=== PATIENT | male | born 1980 | race African-American/Black ===

== ENCOUNTER 2021-07-30 06:29 | Emergency (ER) | payer BC, SELFPAY ==
[2021-07-30] MEDS ORDERED: Ondansetron PF 4 MG/2 ML Vial ONE (07:51)
[2021-07-30] MEDS ORDERED: Morphine 4 MG/ML VIAL ONE (07:51)
[2021-07-30 07:56] LABS: #Eosinphils 0.1 thou/uL (0.0-0.7); #Lymphocytes 1.2 thou/uL (1.20-3.40); #Monocytes 0.9 thou/uL (0.11-0.59); #Neutrophils 4.2 thou/uL (1.40-6.50); %Basophils 0.5 % (0.0-1.0); %Eosinophils 1.6 % (0.0-10.0); %Lymphocytes 18.5 % (21.0-51.0); %Monocytes 14.2 % (0.0-10.0); %Neutrophils 65.3 % (42.0-75.0); Hemoglobin 13.1 g/dL (14.0-18.0); Mean Corpuscular HGB CONC 33.7 g/dL (32.0-36.0); Mean Corpuscular Hemoglobin 28.5 pg (27.0-31.0); Mean Corpuscular Volume 84.6 fL (78.0-98.0); Mean Platelet Volume 7.8 fL (7.4-10.4); Platelet Count 315 thou/uL (130-400); Red Blood Cell (RBC) Count 4.58 mill/uL (4.70-6.10); White Blood Cell (WBC) Count 6.5 thou/uL (4.8-10.8)
[2021-07-30 08:10] LABS: ALT (SGPT) 8 U/L (8-55); AST (SGOT) 16 U/L (5-34); Alkaline Phosphatase 73 U/L (40-110); Anion Gap 11 mmol/L (10-20); BUN (Urea Nitrogen) 8 mg/dL (8.9-20.6); Bilirubin, Total 0.5 mg/dL (0.2-1.2); Calc. Creatinine Clearance 0 mL/min (70-130); Calcium 9.3 mg/dL (7.8-10.44); Carbon Dioxide 27 mmol/L (22-29); Chloride 103 mmol/L (98-107); Globulin 3.3 g/dL (2.4-3.5); Glucose 88 mg/dL (70-105); Potassium 4.3 mmol/L (3.5-5.1); Protein, Total 7.3 g/dL (6.0-8.3); Sodium 137 mmol/L (136-145)
== END 2021-07-30 09:17 | disposition home or self-care (01) ==
LOC: ERS 06:29
DX: R56.9 Unspecified convulsions (principal); R11.2 Nausea with vomiting, unspecified; I48.91 Unspecified atrial fibrillation; Z79.82 Long term (current) use of aspirin; Z79.899 Other long term (current) drug therapy
CPT/HCPCS: 70450; 71045; 80053; 80177; 84484; 85025; 93005; 96374; 96375; J2270; J2405

== ENCOUNTER 2021-09-09 01:37 | Observation (INO) | payer BC ==
[2021-09-09] MEDS ORDERED: Lorazepam 2 MG/ML VIAL SLOW IVP PRN ×2 (01:43→02:48)
[2021-09-09] MEDS ORDERED: Ondansetron PF 4 MG/2 ML Vial IVP PRN ×2 (01:45→02:47)
[2021-09-09] MEDS ORDERED: Acetaminophen 325 MG TAB PO PRN (01:45)
[2021-09-09] MEDS ORDERED: Ondansetron ODT 4 MG TAB SL PRN (01:45)
[2021-09-09 04:27] VITALS: BMI 38.7
[2021-09-09 05:54] LABS: #Eosinphils 0.2 thou/uL (0.0-0.7); #Lymphocytes 2.6 thou/uL (1.20-3.40); #Monocytes 0.5 thou/uL (0.11-0.59); #Neutrophils 3.9 thou/uL (1.40-6.50); %Basophils 0.3 % (0.0-1.0); %Eosinophils 3.2 % (0.0-10.0); %Lymphocytes 36.3 % (21.0-51.0); %Neutrophils 53.3 % (42.0-75.0); Hemoglobin 13.2 g/dL (14.0-18.0); Mean Corpuscular HGB CONC 33.9 g/dL (32.0-36.0); Mean Corpuscular Hemoglobin 29.6 pg (27.0-31.0); Mean Corpuscular Volume 87.5 fL (78.0-98.0); Mean Platelet Volume 7.8 fL (7.4-10.4); Platelet Count 197 thou/uL (130-400); RBC Distribution Width 13.3 % (11.5-14.5); Red Blood Cell (RBC) Count 4.44 mill/uL (4.70-6.10); White Blood Cell (WBC) Count 7.2 thou/uL (4.8-10.8)
[2021-09-09 06:18] LABS: Anion Gap 14 mmol/L (10-20); BUN (Urea Nitrogen) 9 mg/dL (8.9-20.6); Calc. Creatinine Clearance 154 mL/min (70-130); Calcium 8.6 mg/dL (7.8-10.44); Carbon Dioxide 22 mmol/L (22-29); Chloride 105 mmol/L (98-107); Glucose 117 mg/dL (70-105); Potassium 4.3 mmol/L (3.5-5.1); Sodium 137 mmol/L (136-145)
[2021-09-09 06:22] LABS: Troponin I 0.018 ng/mL (< 0.028)
[2021-09-09] MEDS: Lisinopril 20 MG TAB PO SCH (08:08)
[2021-09-09] MEDS: Aspirin 81 mg Enteric Coated Tablet PO SCH (08:08)
[2021-09-09] MEDS: lamoTRIgine 100 MG TAB PO SCH ×2 (08:08→21:19)
[2021-09-09] MEDS: Enoxaparin Sodium 40 MG/0.4 ML SYRINGE SC SCH (08:08)
[2021-09-09] MEDS: Clopidogrel Bisulfate 75 MG TAB PO SCH (08:09)
[2021-09-09] MEDS: Atorvastatin Calcium 40 MG TAB PO SCH (08:09)
[2021-09-09] MEDS: Divalproex Sodium DR 500 MG TAB PO SCH ×3 (08:09→21:19)
[2021-09-09 10:23] LABS: Troponin I Less than 0.010 ng/mL (< 0.028)
[2021-09-09] MEDS: Acetaminophen 325 MG TAB PO PRN ×2 (12:09→16:24)
[2021-09-09] MEDS ORDERED: Ibuprofen 800 MG TAB PO SCH (20:15)
[2021-09-10 06:20] LABS: #Eosinphils 0.2 thou/uL (0.0-0.7); #Monocytes 0.6 thou/uL (0.11-0.59); #Neutrophils 3.8 thou/uL (1.40-6.50); %Basophils 0.7 % (0.0-1.0); %Eosinophils 3.2 % (0.0-10.0); %Lymphocytes 29.6 % (21.0-51.0); %Monocytes 8.5 % (0.0-10.0); %Neutrophils 58.1 % (42.0-75.0); Hemoglobin 12.9 g/dL (14.0-18.0); Mean Corpuscular HGB CONC 34.2 g/dL (32.0-36.0); Mean Corpuscular Hemoglobin 29.5 pg (27.0-31.0); Mean Corpuscular Volume 86.4 fL (78.0-98.0); Platelet Count 186 thou/uL (130-400); RBC Distribution Width 13.2 % (11.5-14.5); Red Blood Cell (RBC) Count 4.35 mill/uL (4.70-6.10); White Blood Cell (WBC) Count 6.6 thou/uL (4.8-10.8)
[2021-09-10 06:31] LABS: Anion Gap 15 mmol/L (10-20); BUN (Urea Nitrogen) 10 mg/dL (8.9-20.6); Calc. Creatinine Clearance 160 mL/min (70-130); Calcium 8.4 mg/dL (7.8-10.44); Carbon Dioxide 21 mmol/L (22-29); Chloride 105 mmol/L (98-107); Glucose 121 mg/dL (70-105); Magnesium 1.7 mg/dL (1.6-2.6); Phosphorus 3.6 mg/dL (2.3-4.7); Potassium 4.4 mmol/L (3.5-5.1); Sodium 137 mmol/L (136-145)
[2021-09-10 06:37] LABS: Hemoglobin A1c 4.7 % (4.0-6.0)
[2021-09-10] MEDS: Aspirin 81 mg Enteric Coated Tablet PO SCH (08:27)
[2021-09-10] MEDS: Divalproex Sodium DR 500 MG TAB PO SCH ×2 (08:27→14:48)
[2021-09-10] MEDS: Lisinopril 20 MG TAB PO SCH (08:27)
[2021-09-10] MEDS: lamoTRIgine 100 MG TAB PO SCH (08:27)
[2021-09-10] MEDS: Atorvastatin Calcium 40 MG TAB PO SCH (08:27)
[2021-09-10] MEDS: Clopidogrel Bisulfate 75 MG TAB PO SCH (08:27)
[2021-09-10] MEDS ORDERED: Ketorolac Tromethamine 30 MG/ML VIAL IVP SCH (08:45)
[2021-09-10] MEDS ORDERED: Sodium Chloride 0.9% 1,000 ML IV SCH (08:45)
[2021-09-10] MEDS ORDERED: Metoclopramide HCl 10 MG/2 ML VIAL IVP SCH (08:45)
[2021-09-10] MEDS ORDERED: Famotidine 20 MG TAB PO SCH (09:00)
[2021-09-10] MEDS: Enoxaparin Sodium 40 MG/0.4 ML SYRINGE SC SCH (09:02)
[2021-09-10 11:41] VITALS: TEMP 97.7
[2021-09-10] MEDS: Acetaminophen 325 MG TAB PO PRN (13:33)
[2021-09-10 15:08] VITALS: BP 153/103
== END 2021-09-10 16:30 | disposition home or self-care (01) ==
LOC: NEURO 01:37
PROVIDERS: ADMIT Internal Medicine; ATTEND Family Medicine
DX: G40.901 Epilepsy, unspecified, not intractable, with status epilepticus (principal); R07.89 Other chest pain; I10 Essential (primary) hypertension; I25.10 Atherosclerotic heart disease of native coronary artery without angina pectoris; I25.2 Old myocardial infarction; I49.9 Cardiac arrhythmia, unspecified; J45.909 Unspecified asthma, uncomplicated; G47.33 Obstructive sleep apnea (adult) (pediatric); I69.354 Hemiplegia and hemiparesis following cerebral infarction affecting left non-dominant side; H53.8 Other visual disturbances; I08.1 Rheumatic disorders of both mitral and tricuspid valves; G43.709 Chronic migraine without aura, not intractable, without status migrainosus; Z87.891 Personal history of nicotine dependence; Z79.02 Long term (current) use of antithrombotics/antiplatelets; Z79.82 Long term (current) use of aspirin; Z79.899 Other long term (current) drug therapy; Z91.010 Allergy to peanuts; Z91.018 Allergy to other foods; Z91.041 Radiographic dye allergy status; Z20.822 Contact with and (suspected) exposure to COVID-19
CPT/HCPCS: 36415; 70551; 71045; 80048; 80164; 80175; 83036; 83735; 84100; 84484; 85025; 85652; 86140; 93005; 93010; 93306; 93880; 95816; 95819; 95957; 96372; 96374; 96375; G0378; J1650; J1885; J2765; J7050